=== PATIENT | female | born 1965 | race Caucasian/White ===

== ENCOUNTER 2019-11-14 02:35 | Emergency (ER) | payer SELFPAY ==
[~2019-11-14] VITALS: Ht 154.9 cm; Wt 86.2 kg
[2019-11-14 02:36] VITALS: Ht 154.9 cm; Wt 86.2 kg
[2019-11-14 03:49] LABS: BASOPHIL % 0.4 % (0-2); PLATELET COUNT 228 x10^3mcL (130-400); RED CELL DISTRIBUTION WIDTH 12.9 % (11.5-14.5)
[2019-11-14 04:00] LABS: CALCIUM 9.7 mg/dL (8.5-10.1); CARBON DIOXIDE 22.9 mmol/L (21-32); CHLORIDE SERUM 97 mmol/L (98-107); CREATININE SERUM 0.9 mg/dL (0.6-1.0); GFR1 > 60 mL/min; GLUCOSE SERUM 148 mg/dL (74-106); SODIUM SERUM 130 mmol/L (136-145)
[2019-11-14 04:06] LABS: ALKALINE PHOSPHATASE 118 U/L (46-116); ALT/SGPT 49 U/L (14-59); AST/SGOT 29 U/L (15-37); BILIRUBIN TOTAL 0.4 mg/dL (0.20-1.00); LIPASE 111 IU/L (73-393)
[2019-11-14 04:07] LABS: TOTAL PROTEIN, SERUM 8.3 g/dL (6.4-8.2)
[2019-11-14 04:09] LABS: microscopic required? YES; urine erythrocyte NEGATIVE (NEGATIVE)
[2019-11-14 06:01] VITALS: BP 143/79
== END 2019-11-14 06:01 | disposition home or self-care (01) ==
LOC: ED 02:35
PROVIDERS: Emergency Medicine
DX: N39.0 Urinary tract infection, site not specified (principal); K29.70 Gastritis, unspecified, without bleeding
CPT/HCPCS: J0696; J1885; J2405; J7060; Q0092